=== PATIENT | male | born 1985 | race Caucasian/White ===

== ENCOUNTER 2021-08-03 15:33 | Emergency (ER) | payer OTHER, SELFPAY ==
[2021-08-03 15:42] VITALS: BP 139/78; PULSE 57; RESP 16; TEMP 37.2; O2SAT 100
--- NOTE | 2021-08-03 15:51 | ED.UPPEXIN ---
HPI - Extremity Injury (Upper) General Chief Complaint: Wound/Laceration Stated Complaint: cut left 3rd finger Time Seen by Provider: 08/03/21 15:51 Source: patient Mode of arrival: ambulatory Limitations: no limitations History of Present Illness HPI narrative: 36 yo M presents with c/o laceration to L middle finger. Was using hand saw and cut finger. Bleeding controlled. Thinks he may have FB. Sees little black specks. ROM intact. no damage to nail. tetanus not UTD. All systems reviewed and negative except as noted above. Related Data Allergies Allergy/AdvReac Type Severity Reaction Status Date / Time No Known Allergies Allergy Verified 08/03/21 15:50 Review of Systems Review of Systems: CONSTITUTIONAL: Denies fever, chills, or sweats. EYES: Denies visual changes, redness, or discharge. ENT: Denies rhinorrhea, congestion, sore throat, or otalgia. CARDIOVASCULAR: Denies chest pain, palpitations, or edema. RESPIRATORY: Denies cough or dyspnea. GASTROINTESTINAL: Denies abdominal pain, nausea, vomiting, or diarrhea. GENITOURINARY: Denies dysuria or hematuria. SKIN: Denies rash or itching. Laceration to distal aspect left middle finger. MUSCULOSKELETAL: Denies back pain, joint pain, or myalgia. NEUROLOGIC: Denies headache, numbness, or weakness. PSYCHIATRIC: Denies anxiety or depression. All other systems reviewed are negative, except as documented in HPI. PMFSH Comments At time of signature, agree with nursing past medical, surgical, social and family history. There is no relevant family history pertinent to the presenting complaint. Exam Narrative: GENERAL: This is a well-nourished, well-developed patient, in no apparent distress. HEAD: normocephalic, atraumatic. EYES: PERRL. Sclera clear/white. Vision is grossly intact. EARS: External ears normal, auditory canals clear and without drainage, TMs normal without perforation. Hearing grossly intact. NOSE: External nose normal with no obvious nasal discharge, nares without redness, no rhinorrhea. THROAT: Mucous membranes moist, posterior pharynx clear. NECK: Neck supple, non-tender without lymphadenopathy, masses or thyromegaly. CARDIOVASCULAR: Regular rate and rhythm without murmurs, gallops, or rubs. RESPIRATORY: Clear to auscultation. Breath sounds equal bilaterally. No wheezes, rales, or rhonchi. GASTROINTESTINAL: Abdomen soft, non-tender, nondistended. Bowel sounds are active. No hepato-splenomegaly, or palpable masses. No guarding. SKIN: warm, Dry, with no suspicious lesions or rash, good texture and turgor. 2 cm laceration to distal Phlemex left middle finger. Bleeding controlled. NEURO: awake, alert, and oriented to person, place and time. There were no obvious focal neurologic abnormalities. EXTREMITIES: No joint tenderness, effusion, or edema noted. No calf tenderness. Negative Homans sign bilaterally. BACK: Nontender without deformity. No CVA tenderness. Course Course Level of Care: Express Care Visit Vital Signs Vital signs: Vital Signs Temperature 37.2 C 08/03/21 15:42 Pulse Rate 57 L 08/03/21 15:42 Respiratory Rate 16 08/03/21 15:42 Blood Pressure 139/78 08/03/21 15:42 Pulse Oximetry 100 08/03/21 15:42 Temperature 37.2 C 08/03/21 15:42 Pulse Rate 57 L 08/03/21 15:42 Respiratory Rate 16 08/03/21 15:42 Blood Pressure 139/78 08/03/21 15:42 Pulse Oximetry 100 08/03/21 15:42 Reviewed Procedures Laceration Laceration 1: Date: 08/03/21 Time: 16:37 Site: hand ( L middle finger) Side (If applicable): left Size (cm): 2 Description: irregular Depth: simple, single layer Local Anesthetic: lidocaine 1% Amount of anesthesia used (mL): 2 Pre-repair: wound explored, irrigated and minor debridement ====== Skin Level ====== Skin layer closed with: nylon Size (cm): 4-0 Number of sutures: 5 Technique: simple, interrupted ====== Subcutan
[2021-08-03] MEDS: TETANUS,DIPHTHERIA,AC PERTUSSIS ADULT (0.5 ML) BOOSTRIX IM (16:19)
== END 2021-08-03 16:40 | disposition home or self-care (01) ==
PROVIDERS: Emergency Provider Nurse Practitioner Family
DX: S61.213A Laceration without foreign body of left middle finger without damage to nail, initial encounter (principal); W27.0XXA Contact with workbench tool, initial encounter; Z23 Encounter for immunization
CPT/HCPCS: 12001; 90471; 90715; 99213; G0463

== ENCOUNTER 2024-09-02 17:14 | Emergency (ER) | payer OTHER, SELFPAY ==
--- NOTE | ~2024-09-02 | XR_ITS ---
XR toe 1st RT min 2V Ordering provider: Talya Doe APRN History: . IP JOINT PAIN,NKI . Comparison: None. FINDINGS: BONES: No acute fracture or dislocation. JOINT SPACES: Narrowing of the interphalangeal joint. Marginal osteophytes are also noted. SOFT TISSUES: Normal. IMPRESSION: No acute osseous abnormality. Osteoarthritic changes of the interphalangeal joint. Reviewed, dictated and finalized at location A.
--- OUTSIDE RECORDS SUMMARY | 2024-09-02 17:16 | XMS_ITS | Clinical Summary ---
Author Organization [facility] Address [address] [place] [address] Care Team Providers Care Carbonation Tester Name Role Phone Ashley Ojeda PA-C Primary Care Provider Source Comments [facility],non-owned Affiliates and Associated Physician Practices is amultiple site organization consisting of ambulatory clinics and hospital sitesin [place], [place], [place] and [place]. This disclosure is being madepursuant to the Care Everywhere program and may not contain all information available regarding this patient. Last updated 18.[facility] Allergies No known active allergies Medications * Be aware that medications may not be up to date on this document. Alwaysverify current medications with the patient. Medication Sig Dispensed Refills Start Date End Date Status ketoconazole (Nizoral) 2 % shampooIndications:Elin a versicolor Apply to wet face, trunk, & extremities, leave on for 3-5 minutes, then rinse, daily. 30 day supply. 120 mL 5 01/07/2024 Active Active Problems Problem Noted Date Diagnosed Date Tinea versicolor 09/05/2023 Social History Tobacco Use Types Packs/Day Years Used Date Smoking Tobacco: Every Day Cigarettes Alcohol Use Standard Drinks/Week Comments Yes 0 (1 standard drink = 0.6 oz pur e alcohol) socially Sex and Gender Information Value Date Recorded Sex Assigned at Not on file Gender Identity Not on file Sexual Orientation Not on file Last Filed Vital Signs Vital Sign Reading Time Taken Comments Blood Pressure 160/86 08/08/2016 6:38 AM CDT Pulse 80 08/08/2016 6:38 AM CDT Temperature 36.9 C (98.4 F) 08/08/2016 5:34 AM CDT Respiratory Rate 18 08/08/2016 6:38 AM CDT Oxygen Saturation 99% 08/08/2016 6:38 AM CDT Inhaled Oxygen Concentration - - Weight 108.9 kg (240 lb) 08/08/2016 5:34 AM CDT Height 172.7 cm (5' 8 ) 08/08/2016 5:25 AM CDT Body Mass Index 36.49 08/08/2016 5:25 AM CDT Plan of Treatment Health Maintenance Due Date Last Done Comments HIV SCREENING 2001 HEPATITIS C SCREENING 06/06/2004 DTAP/TDAP/TD VACCINES (1 - Tdap) 2005 HEPATITIS B VACCINE (1 of 3 - 19+ 3-dose series) 2005 PNEUMOCOCCAL VACCINE (1 of 2 - PCV) 2005 COVID-19 VACCINE (1 - 2023-2 5 season) 2024 DEPRESSION SCREENING 05/27/2024 INFLUENZA VACCINE (Season Ended) 2025 ZOSTER VACCINE (1 of 2) 2036 HIB VACCINE Aged Out No longer eligi ble based on patient's age to complete this topic HPV VACCINE Aged Out No longer eligi ble based on patient's age to complete this topic MENINGOCOCCAL (Group B) VACC INE SHARED DECISION-MAKING Aged Out No longer eligibl e based on patient's age to complete this topic MENINGOCOCCAL GROUPS A/C/Y/W VACCINE Aged Out No longer eligible b ased on patient's age to complete this topic Care Teams Carbonation Tester Relationship Specialty Start Date End Date Ashley Ojeda PA-C [address] [place] [address] PCP - General Physician Lens Generating Machine Tender 09/03/23
--- OUTSIDE RECORDS SUMMARY | 2024-09-02 17:16 | XMS_ITS | Clinical Summary ---
Author Organization [facility] Address [address] [place] [id number] Phone Care Team Providers Care Nuclear Medicine Physician Name Role Phone Unavailable Primary Care Provider Unavailabl e Medications naproxen sodium (ALEVE) 220 mg Tablet Take 220 mg by mouth every 4 hours as needed for Pain, Moderate. Active Active Problems Problem Noted Date Diagnosed Date Tobacco use 11/20/2021 Cigarette dependence 11/20/2021 Dental abscess Social History Tobacco Use Types Packs/Day Years Used Date Smoking Tobacco: Every Day Cigarettes Smokeless Tobacco: Never Alcohol Use Standard Drinks/Week Comments Not Currently 0 (1 standard drink = 0.6 oz pur e alcohol) Sex and Gender Information Value Date Recorded Sex Assigned at Not on file Legal Sex Male 8:06 PM CDT Gender Identity Not on file Sexual Orientation Not on file Last Filed Vital Signs Vital Sign Reading Time Taken Comments Blood Pressure 137/90 11/20/2021 2:03 PM CDT Pulse 66 11/20/2021 2:03 PM CDT Temperature 36.7 C (98 F) 11/20/2021 2:03 PM CDT Respiratory Rate 16 11/20/2021 2:03 PM CDT Oxygen Saturation 98% 11/20/2021 2:03 PM CDT Inhaled Oxygen Concentration - - Weight 108.9 kg (240 lb) 11/19/2021 8:11 PM CDT Height 170.2 cm (5' 7 ) 11/19/2021 8:11 PM CDT Body Mass Index 37.59 11/19/2021 8:11 PM CDT Plan of Treatment Health Maintenance Due Date Last Done Comments PNEUMOCOCCAL VACCINE 0-49 YE ARS (1 of 2 - PCV) 1992 DTAP/TDAP/TD VACCINES (1 - Tdap) 2005 HEPATITIS B VACCINES (1 of 3 - 19+ 3-dose series) 2005 INFLUENZA VACCINE (#1) 2023 HPV VACCINES Aged Out No longer eligi ble based on patient's age to complete this topic Insurance Advance Directives For more information, please contact: [phone] * Full Code (Latest Code Status on File) Date Activated Date Inactivated Comments 11/20/2021 5:22 AM 11/20/2021 4:37 PM
--- OUTSIDE RECORDS SUMMARY | 2024-09-02 17:16 | XMS_ITS | Clinical Summary ---
Author Organization [address] Address [address] [place] [address] Care Team Providers Care Burning Machine Operator Name Role Phone No, Physician Primary Care Provider [phone] Allergies No known active allergies Medications selenium sulfide (SELSEB) 2.25 % shampooIndicati ons:Seborrheic Dermatitis Apply topically every 7 days Apply to skin for 10 minutes then rinse off 180 mL 1 Active Additional Information Patient not taking.Reported on 11/13/2023 acetaminophen-c odeine (TYLENOL with CODEINE #3) 300-30 mg per tablet Take 1-2 tablets by mouth every 6 (six) hours as needed for pain 12 tablet 2 Active Additional Information Patient not taking.Reported on 11/13/2023 chlorhexidine (PERIDEX) 0.12 % solution Apply 15 mL to the mouth or throat 2 (two) times a day 120 mL 2 Active Additional Information Patient not taking.Reported on 11/13/2023 HYDROcodone-zina taminophen (NORCO) 5-325 mg per tabletIndicatio ns:Pain Take 1 tablet by mouth every 6 (six) hours as needed for pain for up to 6 doses 6 tablet 3 Active Additional Information Patient not taking.Reported on 11/13/2023 Active Problems Problem Noted Date Diagnosed Date Dental abscess 02/08/2024 Tinea versicolor 09/05/2023 Cigarette nicotine dependence, uncomplicated Surgical History Surgery Date Site/Laterality Comments NO PAST SURGERIES Medical History Medical History Date Comments No pertinent past medical history Social History Tobacco Use Types Packs/Day Years Used Date Smoking Tobacco: Every Day Cigarettes Tobacco Cessation:Ready to Q uit: Not Asked; Counseling Given: Not Answered Personal Safety Answer Date Recorded Getting School Help Needed Not on file 01/16 Sex and Gender Information Value Date Recorded Sex Assigned at Not on file Legal Sex Male 4:23 PM CDT Gender Identity Not on file Sexual Orientation Not on file Obstetrics History Last Filed Vital Signs Vital Sign Reading Time Taken Comments Blood Pressure 138/80 02/08/2024 10:11 AM CDT Pulse 74 02/08/2024 10:11 AM CDT Temperature 36.3 C (97.4 F) 02/08/2024 10:11 AM CDT Respiratory Rate 16 02/08/2024 10:11 AM CDT Oxygen Saturation 95% 02/08/2024 10:11 AM CDT Inhaled Oxygen Concentration - - Weight 104.3 kg (230 lb) 02/08/2024 10:11 AM CDT Height 172.7 cm (5' 8 ) 02/08/2024 10:11 AM CDT Body Mass Index 34.97 02/08/2024 10:11 AM CDT Plan of Treatment Health Maintenance Due Date Last Done Comments Depression Screening 1986 Hepatitis C Screening 1986 Varicella Vaccines (1 of 2 - 13+ 2-dose series) 1999 Hepatitis B Screening 2004 Regular Well Visit/Exam 18-64 2004 Pneumococcal vaccine <65 (1 of 2 - PCV) 2005 Influenza Vaccine (#1) 2024 DTaP/Tdap/Td Vaccine (2 - Td or Tdap) 08/04/2031 08/03/2021 HPV Vaccines Aged Out No longer eligi ble based on patient's age to complete this topic Insurance [facility] [id number] [place] [address] Care Teams Burning Machine Operator Relationship Specialty Start Date End Date No, Physician PCP - General 10/11/20
--- OUTSIDE RECORDS SUMMARY | 2024-09-02 17:16 | XMS_ITS | Referral Summary ---
Author Organization [address] Address [address] [place] [address] Care Team Providers Care Revenue Enforcement Collection Agent Name Role Phone No, Physician Primary Care Provider [phone] Allergies No known active allergies Medications selenium [...] Tinea versicolor 09/05/2023 Cigarette nicotine dependence, uncomplicated Social History Tobacco Use Types Packs/Day Years [...] 02/08/2024 10:11 AM CDT Plan of Treatment Not on file Insurance [facility] Care Teams Revenue Enforcement Collection Agent Relationship Specialty Start Date End Date No, Physician PCP - General 10/11/20
[2024-09-02 17:24] VITALS: BP 141/86; PULSE 81; RESP 16; TEMP 36.7; O2SAT 98
--- NOTE | 2024-09-02 17:36 | ED.LOWEXIN ---
HPI - Extremity Injury (Lower) General Chief Complaint: Extremity Injury, Lower Stated Complaint: right foot pain Source: patient Mode of arrival: ambulatory Limitations: no limitations History of Present Illness HPI Narrative: 39 y/o male presented for c/o right great toe pain and swelling x2 weeks. Says it is getting worse x1 week. Has not taken anything for pain. Says possible injury occurred when he stumbled while wearing steel toed boots 2 weeks ago. denies deformity or bruising, numbness tingling or weakness. No pcp, no meds, no hx gout. Related Data Allergies Allergy/AdvReac Type Severity Reaction Status Date / Time No Known Allergies Allergy Verified 09/02/24 17:23 Review of Systems Review of Systems: CONSTITUTIONAL: Denies body aches, fever, chills CARDIOVASCULAR: Denies chest pain, palpitations, or edema. RESPIRATORY: Denies cough or dyspnea. SKIN: Denies rash, itching, or wounds. MUSCULOSKELETAL: Reports right great toe pain NEUROLOGIC: Denies headache, numbness, tingling, or weakness. All systems reviewed & are unremarkable except as noted in HPI and below PMFSH Comments At time of signature, I have reviewed and agree with nursing past medical, surgical, social and family history unless otherwise noted. Please see nursing chart for further information. There is no relevant family history pertinent to the presenting complaint Exam Narrative: GENERAL: Well-appearing CHEST: Speaks in full sentences. No respiratory distress. HEART: Regular rate and rhythm. Normal and equal peripheral pulses. EXTREMITIES: Right foot has normal strength and sensation, decreased range of motion of right great toe due to pain with movement. Mild swelling and erythema, tenderness to IP joint. No ecchymosis. No open wounds, or obvious deformity; alignment normal, pulse palpable and equal bilaterally, skin warm, dry, pink. Capillary refill less than 3 seconds. SKIN: Warm, dry, no rash. NEURO: Alert and oriented x3. PSYCH: Normal mood and affect Course Course Emergency Course: Patient is aware of diagnosis, understands and agrees to treatment plan. Anticipatory guidance given. Patient agrees to follow-up as directed and is aware of reasons to seek care at the emergency department. Portions of this record may have been created with voice recognition software Level of Care: Express Care Visit Vital Signs Vital signs: Vital Signs Temperature 98.1 F 09/02/24 17:24 Pulse Rate 81 09/02/24 17:24 Respiratory Rate 16 09/02/24 17:24 Blood Pressure 141/86 H 09/02/24 17:24 Pulse Oximetry 98 09/02/24 17:24 Oxygen Delivery Room Air 09/02/24 17:24 Temperature 98.1 F 09/02/24 17:24 Pulse Rate 81 09/02/24 17:24 Respiratory Rate 16 09/02/24 17:24 Blood Pressure 141/86 H 09/02/24 17:24 Pulse Oximetry 98 09/02/24 17:24 Oxygen Delivery Room Air 09/02/24 17:24 Reviewed MDM - Extremity Injury (Lower) MDM Narrative Medical decision making narrative: Discussed physical exam findings and xray. Most c/w gout. Post op shoe applied. Rx steroid. Advised supportive measures and signs/symptoms to go to the ER. Pt is appropriate for outpt treatment and f/u. Differential Diagnosis Differential diagnosis: Likely other (Plantar fasciitis, heel spur, foot strain/sprain, metatarsal fracture, metatarsalgia, fish's neuroma, gout, cellulitis) Imaging Data Radiologist's impression: Patient: Brant You : 1985 MR#: [id number] Age: 39 Acct:[id number] Loc: [facility] ADM Date: 09/02/24Attending Dr: Ordering Physician: Talya Doe APRN Date of Service: 09/02/24 Procedure(s): XR toe 1st RT min 2V Accession Number(s): [id number] cc: Talya Doe APRN; UNKNOWN,DOCTOR~ XR toe 1st RT min 2V Ordering provider: Talya Doe APRN History: . IP JOINT PAIN,NKI . Comparison: None. FINDINGS: BONES: No acute fracture or dislocation. JOINT SPACES: Narrowing of the interphalangeal joint. Marginal osteophytes are also noted. SOFT TISSUES: Normal. IMPRESSION: No acute osseous abnormality. Osteoarthritic changes of the interphalangeal joint. Discharge Plan Discharge Clinical Impression: Great toe pain Patient Disposition: Home Condition: Stable Instructions: Antibiotic Form, Gout (ED) Additional Instructions: Gout is a form of inflammatory?arthritis that causes pain and swelling in your joints. A buildup of excess uric acid in your body causes gout. Your body naturally makes uric acid when it breaks down chemicals called purines found in certain foods and drinks. Your kidneys usually filter uric acid out of your blood. Gout symptoms come and go in episodes called flares or gout attacks.?Gout attacks usually last a week or two. You might have some flares that last longer than others, and some might cause more severe symptoms. Between attacks, you might not experience any gout symptoms. Risks include: Parent/grandparent with gout Eating a lot of animal proteins ? especially animal flesh, shellfish and foods that contain organ meat. Drinking alcohol regularly. Taking a diuretic medication (water pills). Taking immunosuppressants Take medication as directed Recommend low purine diet Rest and elevate the right foot to reduce swelling Ice pack as needed to the foot Wear the post-op shoe when walking Follow up with primary care provider in 1 week Go to the ER for worsening symptoms or concerns Patient Language: Hungarian Prescriptions: New methylprednisolone [Medrol (Dillon)] 4 mg tablets,dose pack See Rx Instructions .ROUTE .COMPLEX Qty: 21 0RF Rx Instructions: orally per package directions Follow-up/Referrals: UNKNOWN,DOCTOR [Primary Care Provider] - Time of Disposition: 18:17
== END 2024-09-02 18:29 | disposition home or self-care (01) ==
PROVIDERS: Emergency Provider Nurse Practitioner Family
DX: M79.674 Pain in right toe(s) (principal)
CPT/HCPCS: 73660; 99213; G0463